=== PATIENT | male | born 1930 | race Caucasian/White ===

== ENCOUNTER 2016-10-29 16:49 | Inpatient (IN) ==
--- NOTE | 2016-10-29 18:57 | PROVIDER DOCUMENTATION ---
HPI-General Adult - General Chief Complaint: General Adult Stated Complaint: WEAKNESS,TROUBLE AMBULATING Time Seen by Provider: 10/29/16 18:28 Source: patient, family Allergies/Adverse Reactions: Patient Allergies Allergy/AdvReac Type Severity Reaction Status Date / Time ranitidine HCl * Allergy Unknown Unknown Verified 10/29/16 19:38 [From Zantac] Home Medications: Home Medication List Medication Instructions Recorded Confirmed Last Taken Type Aspirin 325 mg PO DAILY 03/20/12 10/29/16 10/29/16 08:00 History Docusate Sodium [Col-Rite] 250 mg PO BID 03/20/12 10/29/16 10/29/16 08:00 History Terazosin HCl [Hytrin] 5 mg PO HS 03/20/12 10/29/16 10/28/16 20:00 History Amiodarone [Cordarone] 300 mg PO DAILY 09/19/13 10/29/16 10/29/16 08:00 History Levothyroxine [Synthroid] 25 microgm PO DAILY 09/19/13 10/29/16 10/29/16 08:00 History ATORVAstatin [Lipitor] 5 mg PO HS 03/31/14 10/29/16 10/28/16 20:00 History Hydroxyzine HCl 1 tab PO BID 10/29/16 10/29/16 10/29/16 08:00 History - History of Present Illness -Gen Adult Nature of Presenting Problems: 86 year old WM presents with his caregivers who both report pt has become more progressively weak, onset 2-3 weeks ago when he started radiation for lung cancer. pt reports he became so weak, they stopped radiation for last week and attempted to restart today. they attempted to lay him down and he was unable to tolerate due to thoracic back pain. pt had a mechanical fall Thursday and did not report to his caregivers or his doctor. he fell back, striking his head on the grass and landing flat on his back. additional issues reported by his caregivers include brief periods where he will not respond to verbal/tactile stimulus. pt is awake, alert, appropriate, responding to questions appropriately , speaking in full sentences, breathing is unlabored. additional complaints include worsening shortness of breath for 2-3 months, constipation (last BM days ago), intermittent blood in stools for months, subjective fever/chills for weeks. it is unknown if patient has metastasis of the lung ca. Oncologist: Radha Castillo Review of Systems - Adult - REVIEW OF SYSTEMS - ADULT Constitutional: reports: see HPI, chills, fever, fatique, weight loss. denies: weight gain Eyes: reports: no symptoms reported. denies: discharge, decreased vision, blurred vision, double vision Ears, Nose, Mouth & Throat: reports: no symptoms reported. denies: ear discharge, ear pain, nose pain, loose teeth, throat pain, throat swelling Cardiovascular: reports: see HPI, syncope. denies: chest pain, palpitations Respiratory: reports: see HPI, cough, dyspnea on exertion, shortness of breath, wheezing. denies: excessive sputum production, hemoptysis, pleurisy Gastrointestinal: reports: see HPI, abdominal pain, constipation, poor appetite , rectal bleeding. denies: diarrhea, difficulty swallowing, nausea, vomiting Genitourinary: reports: see HPI, dysuria. denies: discharge, frequency, hematuria, hesitency, urgency Musculoskeletal: reports: no symptoms reported. denies: bone pain, joint pain, joint swelling, neck pain Integumentary: reports: no symptoms reported. denies: hives, itching, skin sores/ulcer Neurological: reports: see HPI, loss of balance. denies: ataxia, dizziness/ vertigo, headache/migraines, numbness, paresthesia, seizure, slurred speech, syncope, tremors Psychiatric: reports: no symptoms reported Endocrine: reports: no symptoms reported Hematologic/Lymphatic: reports: no symptoms reported Allergic/Immunologic: reports: no symptoms reported All Other Systems: Reviewed and Negative Past History - Adult - PAST MEDICAL HISTORY-ADULT Review of Records: reports: Old Records Reviewed, Nursing Assessment Review, Medications Reviewed, Social history reviewed & non-contributory. Major Childhood Illnesses: reports: denies history Cardiovascular: reports: CAD, CHF, HTN, pacemaker (defibrillator) Respiratory: reports: COPD, cancer Gastrointestinal: reports: denies history Obstetrical/Gynecological: reports: denies history Genitourinary: reports: kidney disease Musculoskeletal: reports: cancer Neurological: reports: denies history Psychiatric: reports: denies history Endocrine/Immune: reports: thyroid disorder Other Conditions: reports: denies history - PRIOR SURGERIES/PROCEDURES Surgical/Procedure History: reports: appendectomy, cholecystectomy, pacemaker, other (valve replacement) - PRIOR HOSPITALIZATIONS Prior Hospitalizations: reports: for similar symptoms - IMMUNIZATION STATUS Childhood Immunizations: See Nurse Assessment Flu Vaccine: See Nurse Assessment - FAMILY HISTORY Family History: reviewed, not pertinent - SOCIAL HISTORY Smoking: denies, quit greater than 1 year, cigarettes Substance Use: none/never Alcohol Use Frequency: never Physical Exam-General - PHYSICAL EXAM-ADULT Initial Vital Signs Reviewed: Yes - CONSTITUTIONAL General Appearance: appears well, alert, no apparent distress, thin. negative: mild distress, moderate distress, lethargic, slow to respond, obtunded, combative - EYES Eyes: pink conjunctivae. negative: conjuctival exudate, pale conjunctivae, sclera injected, scleral icterus, subconjunctival hemorrhage - HEAD, EARS, NOSE, MOUTH & THROAT HENMT: normocephalic/atraumatic, moist mucous membranes, normal ENT inspection - NECK Neck: non-tender, full range of motion, supple, normal inspection. negative: C- spine tenderness, limited range of motion, tender lateral, tender midline - RESPIRATORY Respiratory: chest non-tender, no pleuratic chest pain, no respiratory distress , no accessory muscle use, decreased breath sounds (left). negative: lungs clear, normal breath sounds, respiratory distress, accessory muscle use, crackles, rales, rhonchi, stridor, wheezing - CARDIOVASCULAR Cardiovascular: normal peripheral pulses, regular rate, rhythm, no edema, no gallop, no JVD, no murmur. negative: bradycardia, tachycardia - GASTROINTESTINAL (ABDOMEN) Abdominal Exam: normal bowel sounds, non tender, soft, no organomegaly, no pulsatile mass. negative: distended, guarding, rigid, tenderness - GENITOURINARY Male Genitalia: deferred - LYMPHATIC Lymphatic: no adenopathy - MUSCULOSKELETAL Back Exam: normal inspection, no vertebral tenderness, CVA tenderness (right), vertebral tenderness (thoracic tenderness). negative: no CVA tenderness, decreased range of motion, swelling Extremity: normal range of motion, non-tender, normal gait, normal inspection, no calf tenderness, normal capillary refill, pelvis stable, pedal edema (trace bilaterally). negative: no pedal edema, deformity, erythema Peripheral Pulses: radial (R): 2+, radial (L): 2+, dorsalis-pedis (R): 2+, dorsalis-pedis (L): 2+ - SKIN Integumentary: normal color, normal turgor, warm/dry. negative: pallor, petechiae, purpura, rash - NEUROLOGIC Neurologic: ell tutor II-XII nml as tested, grossly normal, no motor/sensory deficits , negative romberg's sign. negative: facial droop, focal weakness, motor weakness, sensory deficit - PSYCHIATRIC Psych/Mental Status: normal mood/affect, normal thought content, normal thought process, oriented x 3 Progress - PLAN OF CARE/RESULTS Progress/Plan/Lab Results: Vital Signs - 8 hr 10/29/16 17:05 10/29/16 17:59 10/29/16 18:43 Pulse Rate 72 70 70 Respiratory Rate 19 20 20 Blood Pressure 119/65 119/65 119/65 O2 Sat by Pulse Oximetry 98 99 98 Orders Category Date Time Status Cardiac Monitoring DIRECTED Care 10/29/16 18:28 Active Finger Stick Blood Sugar (ED) DIRECTED Care 10/29/16 18:28 Active Orthostatic Vital Signs NOW Care 10/29/16 18:34 Active Saline Loc NOW Care 10/29/16 18:28 Active ABDOMEN FLAT/UPRIGHT [RAD] Stat Exams 10/29/16 18:33 Ordered C-SPINE/T-SPINE W/O CONTRAST [CT] Stat Exams 10/29/16 18:31 Ordered CHEST-2 VIEWS [RAD] Stat Exams 10/29/16 18:33 Ordered HEAD W/O CONTRAST [CT] Stat Exams 10/29/16 18:29 Ordered ALCOHOL BLOOD Stat Lab 10/29/16 18:28 Uncollected BLOOD CULTURE [BLDCUL] Stat Lab 10/29/16 18:29 Uncollected CBC WITH ELECTRONIC DIFF [HEME] Stat Lab 10/29/16 18:28 Uncollected CK PROFILE [SP CHEM] Stat Lab 10/29/16 18:28 Uncollected COMPREHENSIVE METABOLIC PANEL [CHEM] Stat Lab 10/29/16 18:28 Uncollected LACTATE, PLASMA [CHEM] Stat Lab 10/29/16 18:28 Uncollected PROTIME WITH INR [COAG] Stat Lab 10/29/16 18:28 Uncollected PTT [COAG] Stat Lab 10/29/16 18:28 Uncollected TROPONIN T Stat Lab 10/29/16 18:28 Uncollected TSH Stat Lab 10/29/16 18:35 Uncollected URINALYSIS W/POSS RFLX CULT-1 [URINALYSIS] Stat Lab 10/29/16 18:28 Uncollected URINE DRUG SCREEN Stat Lab 10/29/16 18:28 Uncollected Pulse Oximetry Stat Oth 10/29/16 18:28 Active EKG [EKG] Stat Ther 10/29/16 18:28 Ordered Laboratory Tests 10/29/16 10/29/16 10/29/16 18:55 18:55 18:55 WBC 6.96 RBC 3.38 L Hgb 10.1 L Hct 29.9 L MCV 88.5 MCH 29.9 MCHC 33.8 RDW Std Deviation 14.4 Plt Count 161 MPV 10.1 Immature Gran % (Auto) 0.0 Neut % (Auto) 81.5 H Lymph % (Auto) 8.8 L Hart % (Auto) 8.2 Eos % (Auto) 1.4 Baso % (Auto) 0.1 Immature Gran # (Auto) 0.00 Neut # (Auto) 5.67 Lymph # (Auto) 0.61 L Hart # (Auto) 0.57 Eos # (Auto) 0.10 Baso # (Auto) 0.01 PT INR PTT (Actin FS) Sodium 137 Potassium 4.5 Chloride 104 Carbon Dioxide 20 L Anion Gap 13 BUN 33 H Creatinine 2.0 H Estimated GFR/1.73 m2 32 BUN/Creatinine Ratio 17 Glucose 78 Calculated Osmolality 280 Calcium 8.6 L Total Bilirubin 0.55 AST 11 ALT 6 L Alkaline Phosphatase 97 Creatine Kinase 36 Troponin T Total Protein 6.3 Albumin 3.4 L Globulin 2.9 Albumin/Globulin Ratio 1.2 Plasma Lactate TSH Plasma/Serum Ethyl Alc 10/29/16 10/29/16 10/29/16 18:55 18:55 18:55 WBC RBC Hgb Hct MCV MCH MCHC RDW Std Deviation Plt Count MPV Immature Gran % (Auto) Neut % (Auto) Lymph % (Auto) Hart % (Auto) Eos % (Auto) Baso % (Auto) Immature Gran # (Auto) Neut # (Auto) Lymph # (Auto) Hart # (Auto) Eos # (Auto) Baso # (Auto) PT 11.4 INR 1.08 PTT (Actin FS) 28.4 Sodium Potassium Chloride Carbon Dioxide Anion Gap BUN Creatinine Estimated GFR/1.73 m2 BUN/Creatinine Ratio Glucose Calculated Osmolality Calcium Total Bilirubin AST ALT Alkaline Phosphatase Creatine Kinase Troponin T < 0.010 Total Protein Albumin Globulin Albumin/Globulin Ratio Plasma Lactate 1.2 TSH Plasma/Serum Ethyl Alc 10/29/16 18:55 WBC RBC Hgb Hct MCV MCH MCHC RDW Std Deviation Plt Count MPV Immature Gran % (Auto) Neut % (Auto) Lymph % (Auto) Hart % (Auto) Eos % (Auto) Baso % (Auto) Immature Gran # (Auto) Neut # (Auto) Lymph # (Auto) Hart # (Auto) Eos # (Auto) Baso # (Auto) PT INR PTT (Actin FS) Sodium Potassium Chloride Carbon Dioxide Anion Gap BUN Creatinine Estimated GFR/1.73 m2 BUN/Creatinine Ratio Glucose Calculated Osmolality Calcium Total Bilirubin AST ALT Alkaline Phosphatase Creatine Kinase Troponin T Total Protein Albumin Globulin Albumin/Globulin Ratio Plasma Lactate TSH 1.57 Plasma/Serum Ethyl Alc Orders Category Date Time Status Cardiac Monitoring DIRECTED Care 10/29/16 18:28 Active Finger Stick Blood Sugar (ED) DIRECTED Care 10/29/16 18:28 Active Orthostatic Vital Signs NOW Care 10/29/16 18:34 Active Saline Loc NOW Care 10/29/16 18:28 Active ABDOMEN FLAT/UPRIGHT [RAD] Stat Exams 10/29/16 18:33 Taken C-SPINE/T-SPINE W/O CONTRAST [CT] Stat Exams 10/29/16 18:31 Taken CHEST-2 VIEWS [RAD] Stat Exams 10/29/16 18:33 Taken HEAD W/O CONTRAST [CT] Stat Exams 10/29/16 18:29 Taken ALCOHOL BLOOD Stat Lab 10/29/16 18:55 Completed BLOOD CULTURE [BLDCUL] Stat Lab 10/29/16 19:00 Received CBC WITH ELECTRONIC DIFF [HEME] Stat Lab 10/29/16 18:55 Completed CK PROFILE [SP CHEM] Stat Lab 10/29/16 18:55 Completed COMPREHENSIVE METABOLIC PANEL [CHEM] Stat Lab 10/29/16 18:55 Completed LACTATE, PLASMA [CHEM] Stat Lab 10/29/16 18:55 Completed PROTIME WITH INR [COAG] Stat Lab 10/29/16 18:55 Completed PTT [COAG] Stat Lab 10/29/16 18:55 Completed TROPONIN T Stat Lab 10/29/16 18:55 Completed TSH Stat Lab 10/29/16 18:55 Completed URINALYSIS W/POSS RFLX CULT-1 [URINALYSIS] Stat Lab 10/29/16 18:28 Uncollected URINE DRUG SCREEN Stat Lab 10/29/16 18:28 Uncollected Morphine Med 10/29/16 20:57 Once 2 mg IV NOW ONE Ondansetron [Zofran] Med 10/29/16 20:57 Once 4 mg IV NOW ONE Pulse Oximetry Stat Oth 10/29/16 18:28 Active EKG [EKG] Stat Ther 10/29/16 18:28 Ordered Vital Signs - 24 hr 10/29/16 17:05 10/29/16 17:59 10/29/16 18:43 Pulse Rate 72 70 70 Pulse Rate [Sitting] Pulse Rate [Supine] Respiratory Rate 19 20 20 Blood Pressure 119/65 119/65 119/65 Blood Pressure [Sitting] Blood Pressure [Supine] O2 Sat by Pulse Oximetry 98 99 98 10/29/16 20:09 Pulse Rate Pulse Rate [Sitting] 76 Pulse Rate [Supine] 70 Respiratory Rate Blood Pressure Blood Pressure [Sitting] 116/61 Blood Pressure [Supine] 117/59 O2 Sat by Pulse Oximetry Reviewed radiology, H&P with Dr. Lindquist, agrees with plan of care, treatment, admission. Result Diagrams: 10/29/16 18:55 10/29/16 18:55 - CONSULTS/PCP/HOSPITALIST Notification #1 *Consult/PCP/Hospitalist*: Dr. Javier Minor Discussed: 21:01 Consult Disposition: other (would like input from neurology at [facility] before accepting patient.) #2 Consult: Dr. Jonathan Minor Discussed: 21:25 Consult Disposition: Admit, other (reviewed case with Dr. Castillo who reports she will evaluate patient in the AM, start Decadron 10mg IV now and Decadron 6mg IV Q6 hours for brain swelling. She does not advise transfer/neurologist consult at [facility]. Dr. Lindquist aware of status of care.) #3 Consult: Dr. Javier Minor Discussed: 21:39 Reason/Comments: Dr. Lindquist spoke with Dr. Herrera who agreed to admission. Consult Disposition: Will see in ED, Admit Departure - Departure Time of Disposition Decision: 21:03 DIAGNOSIS: Weakness Metastatic lung cancer (metastasis from lung to other site) Qualifiers: Laterality: left Qualified Code(s): C34.92 - Malignant neoplasm of unspecified part of left bronchus or lung Disposition: ADMITTED INPATIENT 09 Certified Medical Emergency: Emergent Condition: Stable Referrals and Follow-Ups: UNKNOWN, [NON-STAFF] - - Critical Care Note This patient required my direct personal management.: No Attestation - Physician/ ELÍAS Attestation Patient care was provided by Advanced Practice Provider:: Yes Advanced Practice Provider:: Torito Rouse Advanced Practice Provider documentation review:: The Mid-level provider documentation, treatment plan and medical decision making was reviewed by the physician who agrees with all treatment and medical decision making by the MLP.
[2016-10-29 19:13] LABS: MANUAL DIFF NEEDED? NO
[2016-10-29 19:16] LABS: BASO% 0.1 % (0.0-0.8); EOS% 1.4 % (0.0-10.0); HEMATOCRIT 29.9 % (42.0-52.0); HEMOGLOBIN 10.1 g/dL (14.0-18.0); LYMPH# 0.61 X1000 (1.2-3.4); LYMPH% 8.8 % (20.5-51.1); MCH 29.9 PG (27-31); MCHC 33.8 g/dL (33-37); MCV 88.5 FL (81-99); MONO# 0.57 X1000 (0.11-0.59); MONO% 8.2 % (1.7-9.3); MPV 10.1 FL (7.4-10.4); NEUT% 81.5 % (42.2-75.2); PLT 161 X1000 (130-400); RBC 3.38 XMIL (4.7-6.1)
[2016-10-29 19:25] LABS: INR 1.08; PROTIME 11.4 Seconds (9.2-11.7); PTT 28.4 Seconds (22.0-36.0)
[2016-10-29 20:09] LABS: ALBUMIN 3.4 g/dL (3.5-5.0); CALCIUM 8.6 mg/dL (8.8-10.2); POTASSIUM 4.5 mmol/L (3.5-5.1); TOTAL BILIRUBIN 0.55 mg/dL (0.20-1.00); TOTAL PROTEIN 6.3 g/dL (6.3-8.3)
[2016-10-29] MEDS ORDERED: ZOFRAN IV ONE (20:57)
[2016-10-29] MEDS ORDERED: MORPHINE IV ONE (20:57)
[2016-10-29] MEDS ORDERED: DECADRON IV ONE (21:24)
[2016-10-29 21:48] LABS: URINE CULTURE NEEDED? NO; URINE MICRO REVIEW NEEDED? NO; URINE SOURCE CLEAN CATCH
[2016-10-29 22:03] LABS: UR AMPHETAMINES QUAL NONE DETECTED (NONE DETECT); UR BARBITUATES QUAL NONE DETECTED (NONE DETECT); UR BENZODIAZEPIN QUAL NONE DETECTED (NONE DETECT); UR CANNABINOIDS QUAL NONE DETECTED (NONE DETECT); UR COCAINE QUAL NONE DETECTED (NONE DETECT); UR METHADONE QUAL NONE DETECTED (NONE DETECT); UR OPIATES QUAL NONE DETECTED (NONE DETECT); UR OXYCODONE QUAL NONE DETECTED (NONE DETECT); UR PCP QUAL NONE DETECTED (NONE DETECT)
[2016-10-29 22:05] LABS: BILIRUBIN URINE NEGATIVE (NEGATIVE); BLOOD URINE NEGATIVE (NEGATIVE); COLOR YELLOW; GLUCOSE URINE NEGATIVE (NEGATIVE); LEUKOCYTES URINE NEGATIVE (NEGATIVE); NITRITE URINE NEGATIVE (NEGATIVE); PH URINE 7.5; PROTEIN URINE 30 mg/dL (NEGATIVE); TURBIDITY URINE CLEAR (CLEAR); UR EPITHELIAL CELLS <10 /HPF (<10); URINE BACTERIA NEGATIVE /HPF; URINE RBC <10 /HPF (<10); URINE WBC <10 /HPF (<10); UROBILINOGEN URINE 4 mg/dL (NORMAL)
[2016-10-29] MEDS: NS 1,000 ML IV SCH (23:50)
--- NOTE | 2016-10-30 01:28 | HISTORY AND PHYSICAL ---
PRIMARY CARE PHYSICIAN: Yudi Cooper MD. CHIEF COMPLAINT: Dizziness and status post fall. HISTORY OF PRESENTING ILLNESS: An 86-year-old male with a history of lung cancer, CHF, and hypertension. Had presented to the emergency department after he was feeling dizzy and apparently had a fall. He was evaluated in the ER. He had a CAT scan done, which did show metastasis with some vasogenic edema in his brain. His case was discussed with the oncologist, recommend we start the patient on Decadron, and this was started in the ER. The patient will need hospitalization for further management. At the time of my examination, he had denied having any fevers, chills, chest pain, shortness of breath, hemoptysis, but complained of having some vision problems for several months. PAST MEDICAL HISTORY: Includes lung cancer, CHF, hyperlipidemia, hypertension. PAST SURGICAL HISTORY: Aortic valve replacement, AICD, cholecystectomy, appendectomy. ALLERGIES: Ranitidine. CURRENT MEDICATIONS: As listed in the MAR. SOCIAL HISTORY: He is a former smoker. History of alcohol abuse in the past. Denies any illicit drug use. He was fairly independent. FAMILY HISTORY: No history of coronary artery disease. REVIEW OF SYSTEMS: Twelve-point review of systems as in HPI. Other systems negative. PHYSICAL EXAMINATION: GENERAL: Cooperative, friendly male. He is resting comfortably. VITAL SIGNS: Pulse 70, respirations 20, blood pressure 119/65. HEENT: Atraumatic, normocephalic. Extraocular movements intact. PERRLA. NECK: No masses. CHEST: Bibasilar rales. CARDIOVASCULAR: Regular rate and rhythm. ABDOMEN: Soft. Positive bowel sounds. EXTREMITIES: No edema. NEUROLOGIC: He is awake, alert, oriented x3. GENITOURINARY: No bladder distention. SKIN: Warm. LABORATORIES AND STUDIES: WBC 6.96, hemoglobin 10.1, hematocrit 29.9, platelets 161,000. Sodium 137, potassium 4.5, chloride 104, CO2 of 20, BUN is 23, creatinine is 2.0, glucose is 78. ASSESSMENT: An 86-year-old male with a history of lung cancer. Apparently, was receiving radiation treatment. Had presented to the emergency department after he was having episodes of dizziness and falling. He was evaluated the ER. He had a CAT scan done of his head, which did show brain metastasis, with some vasogenic edema. His case was discussed with oncology, who recommend we start patient on Decadron, and the patient will need hospitalization for further management. The patient is currently mentally capable to make his decisions, and he states that he wants to be a DNR level 1. 1. Dizziness. 2. Status post fall. 3. Lung cancer, with metastasis to brain. 4. History of congestive heart failure. 5. Hypertension. PLAN: 1. We will admit patient to medical floor with telemetry. 2. We will start the patient on Decadron, as instructed by oncology. 3. We will consult his oncologist. 4. We will monitor his blood pressure closely. 5. Will put patient on DVT prophylaxis with SCDs. 6. Patient will be DNR level 1. 7. We will continue to follow and reassess. cc: Paul Herrera MD
[2016-10-30 06:03] LABS: HEMATOCRIT 28.8 % (42.0-52.0); HEMOGLOBIN 9.7 g/dL (14.0-18.0); LYMPH# 0.33 X1000 (1.2-3.4); LYMPH% 6.3 % (20.5-51.1); MANUAL DIFF NEEDED? YES; MCH 29.8 PG (27-31); MCHC 33.7 g/dL (33-37); MCV 88.6 FL (81-99); MONO# 0.06 X1000 (0.11-0.59); MONO% 1.1 % (1.7-9.3); MPV 9.6 FL (7.4-10.4); NEUT% 92.6 % (42.2-75.2); PLT 155 X1000 (130-400); RBC 3.25 XMIL (4.7-6.1)
[2016-10-30 06:16] LABS: LYMPHS 8 % (21-51); MONO 4 % (1-9)
[2016-10-30] MEDS: DECADRON IV SCH ×4 (06:17→21:17)
[2016-10-30 06:23] LABS: CALCIUM 8.2 mg/dL (8.8-10.2); POTASSIUM 4.9 mmol/L (3.5-5.1)
--- NOTE | 2016-10-30 07:29 | Diag Imaging Result Document ---
PROCEDURE NAME: HEAD W/O CONTRAST - 10/29/[address], 10/29/2016: A CT dose reduction protocol was used. COMPARISON: 09/29/2016. FINDINGS: There are numerous hyperdense metastases throughout the cerebrum, at least 5 on the right side and 3 on the left. Some of these are of low-density, some are hyperdense. The largest is at the right frontal lobe measuring about 2 cm. There is significant surrounding vasogenic edema at these masses. No midline shift. No free-flowing hemorrhage. The skull is intact. The sinuses, mastoids, and middle ears are clear. IMPRESSION: Numerous metastases throughout the brain. [facility]
--- NOTE | 2016-10-30 07:37 | Diag Imaging Result Document ---
PROCEDURE NAME: C-SPINE/T-SPINE W/O CONTRAST - 10/29/2016 CT CERVICAL SPINE: A CT dose reduction protocol was used. COMPARISON: None. FINDINGS: Alignment is anatomic. There is extremely heavy degenerative disk disease throughout the cervical spine diffusely. There are ill-defined lytic metastases at the C6 vertebral body and the left facet of C3. No obvious central canal mass. No adenopathy or fracture. IMPRESSION: 1. 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 2. Heavy degenerative disk disease. CT THORACIC SPINE: A CT dose reduction protocol was used. COMPARISON: Chest x-ray 09/05/2016. FINDINGS: There is a moderate left pleural effusion. There is probably a pulmonary mass in the left lung base. There are numerous small nodules in the right upper lobe. The thoracic spine is intact with no evidence of fracture or subluxation. There is heavy multilevel degenerative disk disease. IMPRESSION: Left base pulmonary mass peer and pleural effusion. Several nodules on the right side. [facility]
--- NOTE | 2016-10-30 08:00 | Diag Imaging Result Document ---
PROCEDURE NAME: ABDOMEN FLAT/UPRIGHT - 10/29/2016 FLAT AND UPRIGHT ABDOMEN: FINDINGS: There is a fair amount of stool throughout the colon. The urinary bladder is slightly distended. There is gas in the sigmoid colon. The stomach and small bowel are not distended. There is no definite evidence of organomegaly. There appears to be atelectasis and probable pleural fluid in the left base. IMPRESSION: Constipation.
--- NOTE | 2016-10-30 08:00 | Diag Imaging Result Document ---
PROCEDURE NAME: CHEST-2 VIEWS - 10/29/2016 TWO VIEWS OF THE CHEST: FINDINGS: There is an enlarging left pleural effusion with compressive atelectasis and/or pneumonia in the left lower lobe. The right lung is stable in appearance compared to 09/05/2016. IMPRESSION: Worsened left pleural effusion.
[2016-10-30] MEDS: CORDARONE PO SCH (09:45)
[2016-10-30] MEDS: SYNTHROID PO SCH (09:45)
[2016-10-30] MEDS: NS 1,000 ML IV SCH (12:20)
--- NOTE | 2016-10-30 16:53 | PROGRESS NOTE ---
DATE: 10/30/2016 SUBJECTIVE: Patient reports feeling fine. Denies any headache, any nausea or vomiting. OBJECTIVE: Vital Signs: Temperature 97.5 degrees, heart rate 76, respiratory rate 16, blood pressure 139/53, O2 saturation 100% on room air. General Examination: This is an 86-year-old chronically ill-looking and frail, male, lying in bed, in no acute distress. HEENT: Head is normocephalic, atraumatic. Anicteric sclerae and pale conjunctivae. Mucous membranes moist. Neck: Supple. No JVD noted. No carotid bruits. No lymphadenopathy. No thyromegaly. Cardiovascular: S1, S2 heard. No murmurs, gallops, or rubs. Regular rate and rhythm. Respiratory: Bibasilar rales and patient is not using any accessory muscles or having work of breathing. Abdomen: Soft, nontender to palpation. Bowel sounds present. No organomegaly. Extremities: No clubbing, cyanosis, or edema. Peripheral pulses present in both legs. Neurological: Patient is awake and alert. Moves 4 extremities. ASSESSMENT AND PLAN: 1. Status post fall. 2. Lung cancer with brain metastases. 3. History of congestive heart failure. 4. Hypertension. PLAN: The patient has been admitted to the hospital because of a fall. Patient was feeling very dizzy and we know that this patient had brain mets secondary to this lung cancer. Patient will be seen by Dr. Rosas regarding next step in the management and I think considering his age, his baseline lung cancer with brain metastases I guess the patient will be benefitted from palliative care consultation so we are going to put a consult for that. For congestive heart failure we will continue home medications. cc: Richard Nova MD
[2016-10-30] MEDS: ZOLOFT PO SCH (21:16)
[2016-10-30] MEDS: TOPAMAX PO SCH (21:16)
[2016-10-30] MEDS: HYTRIN PO SCH (21:16)
[2016-10-30] MEDS: LIPITOR PO SCH (21:17)
[2016-10-31] MEDS: NS 1,000 ML IV SCH ×2 (00:46→15:24)
[2016-10-31] MEDS: DECADRON IV SCH ×4 (04:43→21:33)
[2016-10-31] MEDS: SYNTHROID PO SCH (06:41)
[2016-10-31 06:44] LABS: HEMATOCRIT 27.9 % (42.0-52.0); HEMOGLOBIN 9.3 g/dL (14.0-18.0); IMM GRAN# 0.02 X1000 (0.0-0.04); IMM GRAN% 0.2 % (0.0-0.5); LYMPH% 3.5 % (20.5-51.1); MANUAL DIFF NEEDED? YES; MCH 29.4 PG (27-31); MCHC 33.3 g/dL (33-37); MCV 88.3 FL (81-99); MONO# 0.23 X1000 (0.11-0.59); MONO% 2.6 % (1.7-9.3); MPV 10.4 FL (7.4-10.4); NEUT% 93.7 % (42.2-75.2); PLT 168 X1000 (130-400); RBC 3.16 XMIL (4.7-6.1)
[2016-10-31 07:19] LABS: LYMPHS 2 % (21-51)
[2016-10-31] MEDS: ZOLOFT PO SCH (09:24)
[2016-10-31] MEDS: CORDARONE PO SCH (09:24)
[2016-10-31] MEDS: TOPAMAX PO SCH ×2 (09:24→21:33)
--- NOTE | 2016-10-31 14:24 | PROGRESS NOTE ---
DATE: 10/31/2016 SUBJECTIVE: Patient reports mild headache, but medication he is getting here for pain is controlling it. Denies any nausea, vomiting, or any visual changes like dizzy or blurred vision. OBJECTIVE: Vital Signs: Temperature 97.4 degrees, heart rate 70, respiratory rate 20, blood pressure 138/59, O2 saturation 98% on room air. General examination: This is an 86-year-old male, lying in bed in no acute distress. HEENT: Head is normocephalic, atraumatic. Anicteric sclerae and pale conjunctivae. Neck: Supple. No JVD. No carotid bruits. Cardiovascular exam: S1, S2 heard. No murmurs, gallops, or rubs. Regular rate and rhythm. Respiratory exam: There is some bibasilar rales noted, similar in comparing with yesterday. Patient is not using any accessory muscles or having work of breathing. Abdomen: Soft, nontender to palpation. Bowel sounds present. No organomegaly. Extremities: No clubbing, cyanosis, or edema. Peripheral pulses present in both legs. Neurological exam: Patient awake and alert, oriented x3. Moves 4 extremities. ASSESSMENT: 1. Status post fall. 2. Lung cancer with brain metastases. 3. History of congestive heart failure. 4. Hypertension. PLAN: The patient has been admitted to the hospital for history of recurrent falls secondary to brain metastases. I do not know exactly where we are in terms of radiation therapy. Dr. Rosas has been consulted regarding this problem, but the consultation is still pending. We will follow her recommendations. For blood pressure, that has been controlled. We will continue with the same management. cc: Richard Nova MD
--- NOTE | 2016-10-31 16:57 | PALLIATIVE CARE CONSULTATION ---
DATE: 10/31/2016 REQUESTING PHYSICIAN: Mona Toure CRNA. REASON FOR CONSULTATION: Goals of care. HISTORY OF PRESENT ILLNESS: This is an 86-year-old, male with a past medical history of lung cancer, congestive heart failure, hyperlipidemia, and hypertension. He was most recently admitted on 10/30/2016 after presenting to the emergency department with complaints of feeling dizzy and a recent fall. While in the emergency department a CT scan of the head was performed and revealed brain metastasis. CT scan of the spine was also performed and also revealed metastasis. Mr. Armstrong was originally diagnosed with lung cancer in April 2016 and since that time underwent chemotherapy and most recently radiation therapy. Currently he is on the medical floor. He is sitting up in a hospital bed, very pleasant, without any acute complaints. His power of environmental attorney and family friend are at the bedside. The patient states that he has spoken with his oncologist as well as radiation oncologist and has decided to go home with hospice services. The palliative care team has been consulted to assist with initiation of those services. REVIEW OF SYSTEMS: A 12 point review of system has been conducted and otherwise negative except those mentioned in the HPI. PAST MEDICAL HISTORY: 1. 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 2. Congestive heart failure. 3. Hyperlipidemia. 4. Hypertension. PAST SURGICAL HISTORY: 1. Aortic valve replacement. 2. Pacemaker defibrillator placement. 3. Cholecystectomy. 4. Appendectomy. SOCIAL HISTORY: Prior to this admission he lived at home alone. He has 3 children who are estranged. He is . History of alcohol abuse, history of tobacco use. Drug use has been denied. FAMILY HISTORY: None pertinent. PHYSICAL EXAMINATION: General: This is an 86-year-old, chronically ill-appearing, male who does not appear to be in any acute distress. HEENT: Atraumatic, normocephalic. Neck: Trachea is midline. Cardiovascular: Normal S1, S2 with murmur. Pulmonary: Lung sounds are diminished. Respirations are nonlabored. Abdomen: Soft. Bowel sounds are active. Extremities: Pulses are palpable. Neurologic: Awake, alert. Oriented to person, place and time. IMPRESSION: This is an 86-year-old, chronically ill-appearing, male with a past medical history as listed above in the history of present illness. The patient's deurr-io-hbdmehdk states that over the last month he has had an overall decline. He has less functional. His appetite has decreased. She reports a 13 pound weight loss in the last 4 weeks. The patient has decided that he will be a DNR level 1. He has also decided that he would like to change his goals of care for comfort and be discharged home with hospice services. Hospice services were explained and all questions were answered. A hospice consult order will be placed. I have also spoken with Dr. Florez regarding his internal defibrillator and having it deactivated before discharge. It appears that Mr. Armstrong's palliative performance scale is 40%. He is a DNR level 1. As mentioned, he does not have any acute complaints at this time. The palliative care team will continue to follow. Thank you for this consultation. Dictated by KENNY Herzog for Javier Morris MD cc: KENNY Herzog MD
[2016-10-31] MEDS: LIPITOR PO SCH (21:28)
[2016-10-31] MEDS: HYTRIN PO SCH (21:32)
[2016-11-01] MEDS: NS 1,000 ML IV SCH (03:22)
[2016-11-01] MEDS: DECADRON IV SCH ×2 (04:02→09:35)
[2016-11-01] MEDS: SYNTHROID PO SCH (06:30)
[2016-11-01 06:47] LABS: HEMATOCRIT 28.9 % (42.0-52.0); HEMOGLOBIN 9.7 g/dL (14.0-18.0); IMM GRAN# 0.03 X1000 (0.0-0.04); IMM GRAN% 0.4 % (0.0-0.5); LYMPH# 0.21 X1000 (1.2-3.4); LYMPH% 2.5 % (20.5-51.1); MANUAL DIFF NEEDED? YES; MCH 29.5 PG (27-31); MCHC 33.6 g/dL (33-37); MCV 87.8 FL (81-99); MONO# 0.36 X1000 (0.11-0.59); MONO% 4.3 % (1.7-9.3); MPV 9.8 FL (7.4-10.4); NEUT% 92.8 % (42.2-75.2); PLT 144 X1000 (130-400); RBC 3.29 XMIL (4.7-6.1)
[2016-11-01 07:28] LABS: BANDS 4 % (0-1); LYMPHS 4 % (21-51); MONO 2 % (1-9)
[2016-11-01 08:12] VITALS: BP 145/66
[2016-11-01] MEDS: CORDARONE PO SCH (09:34)
[2016-11-01] MEDS: TOPAMAX PO SCH (09:34)
[2016-11-01] MEDS: ZOLOFT PO SCH (09:35)
--- NOTE | 2016-11-01 17:38 | DISCHARGE SUMMARY ---
ADMISSION DATE: 10/30/2016 DISCHARGE DATE: 11/01/2016 DISCHARGE DIAGNOSES: 1. Lung cancer with metastasis to the brain. 2. History of congestive heart failure. 3. Hypertension. 4. Patient going to hospice. CONSULTATIONS: 1. Dr. Sara Rosas from Hematology/Oncology. 2. Palliative Care. HOSPITAL COURSE: This is an 86-year-old, male with a history of lung cancer, who apparently was receiving radiation therapy and he presented to the emergency department after having an episode of dizziness and falling. He was evaluated in the ER and it shows that he has some metastases with edema. Patient admitted to the hospital. Dr. Rosas and Dr. Pereira have been consulted and they finally talked with the family and decided to go for hospice. Patient has been seen by Hospice team and he agreed to go home. Before leaving the hospital he requested to be a DNR code status and the pacemaker the patient has was turned off. The patient is going home with hospice in stable condition right now. The patient is not complaining of any pain at the time of my evaluation today. DISCHARGE PHYSICAL EXAMINATION: Vital Signs: Temperature 97.3 degrees, heart rate 67, respiratory rate 18, blood pressure 145/66, O2 saturation 96% on room air. General Examination: This is an 86-year-old, chronically ill-looking, frail, male, lying in bed, in no acute distress. HEENT: Head is normocephalic, atraumatic. Anicteric sclerae and pale conjunctivae. Mucous membranes moist. Neck: Supple. No erythema. No carotid bruits. No lymphadenopathy. No thyromegaly. Cardiovascular: S1 and S2 heard. No murmurs, gallops, or rubs. Regular rate and rhythm. Respiratory examination: Clear bilaterally to auscultation. No work of breathing or use of any accessory muscles. Abdomen: Soft. Nontender to palpation. Bowel sounds present. No organomegaly. Extremities: No clubbing, cyanosis, or edema. Peripheral pulses present in both legs. Neurological Examination: Patient alert and oriented x3. Moves 4 extremities. DISCHARGE DISPOSITION: Home with hospice. [facility] will take care of this patient. MEDICATIONS: 1. Percocet 5 mg p.o. q.4 hours p.r.n. for pain. 2. Dexamethasone 4 mg, 1 tablet p.o. 3 times per day. FOLLOWUP: Followup with [facility] team. cc: Richard Nova MD
== END 2016-11-01 17:59 | disposition hospice, home (50) ==
LOC: ED 16:49 → SUATTDRO 10-30 00:02 → EDIPHOLD 10-30 00:02 → 3N 10-30 12:39
PROVIDERS: ATTEND Internal Medicine